=== PATIENT | male | born 1945 | race Caucasian/White ===

== ENCOUNTER 2021-04-17 03:27 | Outpatient (CLI) | payer SELFPAY ==
[2021-04-17 11:24] LABS: ESR 21 mm/hr (0-20)
[2021-04-17 12:04] LABS: C-Reactive Protein 0.07 mg/dL (0.0-0.3)
[2021-04-18 09:39] LABS: Lyme Ab w Rflx to Lyme Confirm Negative (Negative)
[2021-04-18 14:40] LABS: ANA Interpretation Negative (Negative)
[2021-04-19 08:40] LABS: Anaplasma phagocytophilum IgG <1:64 titer (<1:64); Ehrlichia Chaffeensis(HME) IgG <1:64 titer (<1:64)
== END 2021-04-17 03:28 | disposition home or self-care (01) ==
LOC: LBO 03:28
PROVIDERS: PCP Internal Medicine; Visit Provider Internal Medicine
DX: R41.3 Other amnesia (principal)
CPT/HCPCS: 36415; 85652; 86038; 86140; 86618; 86666

== ENCOUNTER 2022-01-03 02:31 | Outpatient (CLI) | payer SELFPAY ==
[2022-01-03 10:20] LABS: Anion Gap 9.9 mmol/L (3-11); BUN 19 mg/dL (7-18); CO2 27.1 mmol/L (21.0-32.0); CREATININE 1.1 mg/dL (0.70-1.30); Calcium 9.4 mg/dL (8.5-10.1); Calculated LDL 116 mg/dL (<100); Chloride 108 mmol/L (98-107); Cholesterol 213 mg/dL (<200); Glucose 108 mg/dL (74-106); HDL Cholesterol 67 mg/dL (40-60); Potassium 3.7 mmol/L (3.5-5.1); Sodium 145 mmol/L (136-145); Triglyceride 152 mg/dL (<150)
== END 2022-01-03 02:32 | disposition home or self-care (01) ==
LOC: LBO 02:31
PROVIDERS: PCP Internal Medicine
DX: I10 Essential (primary) hypertension (principal); E78.2 Mixed hyperlipidemia
CPT/HCPCS: 36415; 80048; 80061

== ENCOUNTER 2024-05-27 13:35 | Emergency (ER) | payer MEDICARE, SELFPAY ==
[2024-05-27 13:50] VITALS: BP 164/82; PULSE 95; RESP 18; TEMP 36.7; O2SAT 95
--- NOTE | 2024-05-27 14:00 | RT.EKG_ITS ---
APPROVED REPORT Exam: Resting ECG Reason for Exam: Confusion Patient Location: E HR:90 bpm ECG Measurements Heart Rate 90 AXIS WV 228 P 58 QRSd 168 QRS -48 QT 404 T 123 QTc 496 Conclusion Sinus rhythm...normal P axis, V-rate 60- 99 Ventricular trigeminy...trigeminy string>6 w/ V complexes Prolonged WV interval...WV >220, V-rate 50- 90 Right bundle branch block...QRSd>120, terminal axis(90,270) Inferior infarct, old...Q >35mS, II III aVF Sinus rhythm at a rate of 90. Left axis deviation no signs of LVH. First-degree AV block. Borderli ne QTc prolongation. Frequent PVCs in a pattern of ventricular bigeminy. No prior for comparison. No acute injury pattern. ST segment depressions V2 and V3.
--- NOTE | 2024-05-27 14:00 | DI.CT_ITS ---
Exam(s) CT HEAD WO EXAM: CT HEAD WO CLINICAL HISTORY: Confusion. TECHNIQUE: Imaging Protocol: Axial computed tomography images with coronal and sagittal reformatted images were created and reviewed COMPARISON: CT CT HEAD WO from 04/11/2021 FINDINGS: Ventricles and Extra axial spaces: Normal in size and morphology for the patient's age. Hemorrhage: None. Cerebral parenchyma: There are areas of decreased attenuation in the white matter consistent with chr onic microvascular ischemic disease. Midline shift: None. Brainstem/Cerebellum: Normal. Calvarium: Normal. Visualized Paranasal sinuses/Mastoids: Clear. Soft Tissues: There is a 0.7 x 1.0 cm well-circumscribed nodule in the superior medial left retro-orb ital soft tissues. It is superior to the medial rectus muscle. (Series 2, image 19). IMPRESSION: 1. No acute intracranial process. 2. Findings of cerebral atrophy and chronic microvascular ischemic disease. 3. 0.7 x 1.0 cm left retro-orbital soft tissue mass. Differential considerations include cavernous h emangioma, neoplasm/metastasis, sarcoid, AVM, et cetera. Outpatient MRI of the orbits should be cons idered for further evaluation. RADIATION DOSE DELIVERED: 871.19mGy.cm Total DLP DATA REPOSITORY: All CT scans at this facility are submitted to the National Radiology Data Registry (NRDR) Dose Index Registry (DIR) with the [employer] (ACR). RADIATION OPTIMIZATION: All CT scans at this facility use at least one of these dose optimization te chniques: automated exposure control; mA and/or kV adjustment per patient size (includes targeted exa ms where dose is matched to clinical indication); or iterative reconstruction.
--- NOTE | 2024-05-27 14:00 | DI.RAD_ITS ---
Exam(s) XR CHEST 1V IN DI DEPT EXAM: XR CHEST 1V IN DI DEPT CLINICAL HISTORY: Confusion TECHNIQUE: 2D digital imaging was performed of the chest. One image was obtained. An AP view was ob tained. COMPARISON: No exams were available for comparison FINDINGS: MEDIASTINUM: Normal. HEART: Normal. PULMONARY VASCULATURE: Normal. LUNGS: No focal consolidating infiltrates are present. PLEURAL SPACE: No pleural effusion or pneumothorax. BONE:Within normal limits for the patient's age. OTHER FINDINGS:There is a large hiatal hernia. IMPRESSION: No acute pulmonary findings. DATA REPOSITORY: RADIATION DOSE DELIVERED:
--- NOTE | 2024-05-27 14:05 | ED.GENADUL_ITS ---
Discharge Plan Disposition Patient Disposition: Home Discharge Details Clinical Impression: Intracranial mass, Myocardial injury Primary Care Provider: Finn Li ED Provider: Robin Baez Home Meds and New Rx's Prescriptions: Continued atorvastatin [Lipitor] 40 MG tablet 40 mg PO DAILY amlodipine 5 MG tablet 5 mg PO DAILY aspirin [Aspir-81] 81 MG tablet,delayed release (DR/EC) 81 mg PO DAILY lisinopril 40 MG tablet 40 mg PO DAILY allopurinol 100 MG tablet 100 mg PO DAILY hydrochlorothiazide 25 MG tablet 25 mg PO DAILY metoprolol succinate 50 MG tablet extended release 24 hr 50 mg PO DAILY Discharge Instructions Additional Instructions: You are seen in the emergency department for your cognitive decline. Neurology recommends that you have an MRI of your orbits as you are found to have a new mass. Please follow-up with your primary care next week as you also need an ultrasound of your heart as you had signs of myocardial injury on your blood testing. As we discussed if you develop chest pain shortness of breath or if you pass out please return to the emergency department. HPI General Date/Time Provider Initiated Documentation: 05/27/24 14:01 . HPI Narrative: MDM This is an overall well-appearing normothermic and not tachycardic 79-year-old male with cognitive decline concerning for the possibility of subacute CVA for which patient will undergo CT scan and neurological consultation. No nuchal rigidity to suggest meningitis. No fevers to suggest encephalitis. No pain out of proportion to suggest necrotizing soft tissue infection. No history of vomiting nor head strike so my suspicion is low for intracranial hemorrhage. No headache to suggest subarachnoid hemorrhage. No tonic-clonic activity so my suspicion is low for seizure so I do not feel that the patient requires an EEG. Patient's rhythm is regular that we will obtain a twelve-lead ECG to ensure that he has not had atrial fibrillation. Soft nontender abdomen so my suspicion is low for appendicitis. No chest pain to suggest aortic dissection. No cough to suggest pneumonia. No rash to suggest zoster. No ethanol use to suggest Warnicke's encephalopathy. 3:[address] head with no acute intracranial process but chronic changes and left retro- orbital soft tissue mass concerning for the possibility of AVM neoplasm cavernous hemangioma. Unfortunate I was not able to order a MRI orbit as recommended by radiology. Will obtain an MRI brain to assess for CVA and CT angiogram head and neck. Normal reassuring TSH. CBC with mild normocytic anemia. No leukocytosis. No thrombocytopenia. Markedly elevated troponin at 166 ng/L. Will order repeat troponin and provide 324 mg aspirin given no head bleed. No prior for comparison. No chest pain to suggest myocardial infarct no shortness of breath. Will repeat troponin. Normal renal function. Mild hyperglycemia but no anion gap. Normal bicarbonate??not consistent with DKA. Normal magnesium. Ramila Hopkins from [facility] has evaluated the patient and set patient up with new home services. She also arranged for outpatient palliative care consult. 5:13 PM No large vessel occlusion or stenosis on CT angiogram of head. Left retrobulbar mass concerning for the possibility of cavernous hemangioma. MRI brain showing no evidence of acute infarct. Patient does have cerebral parenchymal abnormalities concerning for the possibility of cerebral amyloid, hypertensive microhemorrhages, ischemic microhemorrhages, multiple cavernous malformations. 6:10 PM Repeat troponin slightly improved compared to prior. Patient still without ches t pain. Neurology recommended checking serum B12 folate Lyme titer. Patient is due for formal neuropsych evaluation regarding dementia. Patient can be discharged per neurology. 7:30 PM I spoke to Dr. Quevedo from cards at [facility]. He advised against treatment for ACS. From a cardiac presepctive patient will require outpatient echo. 7:48 PM Reassuring normal folate. Vitamin B12 within normal limits. Urinalysis nitrite leukoesterase negative not consistent with UTI. I spoke with patient's daughter Brooke [phone]. I updated her on the patient's plan of care. I spoke with health community marketing coordinator [place] and asked the patient to be seen next week by his primary care provider. Will repeat blood pressure. I have asked health community marketing coordinator [place] to have the patient have an outpatient MRI orbit and echocardiogram. I advised patient and his partner that patient should be return to the emergency department if he developed any chest pain shortness of breath nausea or vomiting. Patient understood return indications and was discharged with a trial of expectant outpatient management. Patient reported that he would be adherent with taking his medications. Repeat blood pressure with persistent hypertension. Patient did take his home oral antihypertensive in the ED. Chronic conditions affecting the care of the patient: Hypertension hyperlipidemia History obtained from an outside historian: Patient's partner External record review: No [facility] [place] Diagnostic interpretations performed by me: Per my independent interpretation chest x-ray shows: Per my independent interpretation EKG shows: Sinus rhythm at a rate of 90. Left axis deviation no signs of LVH. First- degree AV block. Borderline QTc prolongation. Frequent PVCs in a pattern of ventricular trigeminy. No prior for comparison. No acute injury pattern. ST segment depressions V2 and V3. ]Medications: Aspirin Social determinants of health affecting disposition: N/A Management discussed with: Neurology cardiology Treatment/interventions considered: N/A Response to therapies provided: N/A HPI This is 79-year-old male with history of hypertension hyperlipidemia arrived to the emergency department via private vehicle with his partner of 10 years in the setting of cognitive decline. Patient reportedly has not taken his medications in the past 3 weeks. His memory has reportedly deteriorated significantly. He reportedly has had word finding difficulties. His partner notes that he recently made a pot of coffee but did not put the pot underneath the medical or surgical instrument maker causing the coffee to spill onto the ground. He reportedly has lost 3 pairs of glasses recently. He was reportedly hiding his medications around the house. No routine tobacco nor illicits. Patient occasionally drinks ethanol. Patient denies chest pain shortness of breath fevers nausea vomiting abdominal pain dysuria frequency. No recent falls. Exam General: Well-appearing in no acute distress speaking in complete sentences. Head: Normocephalic, atraumatic. Eye:[Pupils equal, round reactive to light.] Extraocular eye movements intact. No conjunctival injection. No scleral icterus. Ear, nose, mouth, throat: Grossly normal inspection. Normal voice, handling secretions normally. Neck: Trachea midline. No nuchal rigidity Cardiovascular: Well-perfused distal extremities. Regular rate and rhythm Respiratory: Nonlabored respiration. Clear lungs bilaterally Gastrointestinal: Nondistended abdomen. Obese, soft Musculoskeletal: No edema. Moving all 4 extremities spontaneously. Skin: Normal for age and race, grossly normal temperature and turgor. No acute rash. Neurologic: Alert to person but not place nor time. GCS 14: E4, V4, M6. Cranial nerves II through XII intact grossly. No dysmetria. No dysdiadochokinesia. Psychiatric: Mood and manner are appropriate. Grooming and personal hygiene are appropriate. Related Data Home Medications Medication Instructions Recorded Confirmed allopurinol 100 mg tablet 100 mg PO DAILY 07/11/17 05/27/24 amlodipine 5 mg tablet 5 mg PO DAILY 07/11/17 05/27/24 aspirin 81 mg tablet,delayed 81 mg PO DAILY 07/11/17 05/27/24 release (Aspir-) atorvastatin 40 mg tablet (Lipitor) 40 mg PO DAILY 07/11/17 05/27/24 hydrochlorothiazide 25 mg tablet 25 mg PO DAILY 07/11/17 05/27/24 lisinopril 40 mg tablet 40 mg PO DAILY 07/11/17 05/27/24 metoprolol succinate 50 mg 50 mg PO DAILY 07/11/17 05/27/24 tablet,extended release 24 hr Allergies Allergy/AdvReac Type Severity Reaction Status Date / Time No Known Allergies Allergy Unverified 05/27/24 13:54 General Stated Complaint: [facility]Medical ELVIRA: 3 Course Vital Signs Vital signs: Vital Signs Temperature 36.7 C 05/27/24 13:50 Pulse 95 H 05/27/24 13:50 Respiratory Rate 18 05/27/24 13:50 Blood Pressure 164/82 H 05/27/24 13:50 Pulse Oximetry 95 05/27/24 13:50 Temperature 36.7 C 05/27/24 13:50 Temperature Source Skin 05/27/24 13:50 Pulse 95 H 05/27/24 13:50 Respiratory Rate 18 05/27/24 13:50 Respiratory Effort Normal 05/27/24 13:54 Blood Pressure 164/82 H 05/27/24 13:50 Blood Pressure Position Sitting 05/27/24 13:50 Pulse Oximetry 95 05/27/24 13:50 Oxygen Delivery Method Room Air 05/27/24 13:50 Oxygen Flow Rate 0 05/27/24 13:50 Medical Decision Making Quality:SDOH Health Related Social Needs: No Data to Display PFSH All Active Problems (Updated 05/27/24 @ 17:22 by Robin Baez MD) Myocardial injury (Acute) Intracranial mass (Acute) Social History Smoking/Tobacco Use Status: Never Smoking risk assessment performed?: Yes Alcohol Intake: current Alcohol Intake frequency: holidays/special occasions only Substance use type: does not use Do you feel safe in your relationship?: Yes
[2024-05-27 15:21] LABS: Abs Immature Grans 0.01 10^3/uL (0.0-0.06); Absolute Basophil Count 0.04 10^3/uL (0.0-0.2); Absolute Lymphocyte Count 1.39 10^3/uL (1.2-3.4); Absolute Monocyte Count 0.52 10^3/uL (0.1-0.8); Absolute Neutrophil Count 2.27 10^3/uL (1.2-6.7); Basophils % 0.9 %; Eosinophils % 4.5 %; HCT 42.3 % (40.0-50.0); HGB 12.6 g/dL (13.5-17.5); Immature Grans % 0.2 %; Lymphocytes % 31.4 %; MCHC 29.8 % (32.0-36.0); MCV 81 fL (80-95); MPV 9.8 fL (8.0-11.0); Monocytes % 11.7 %; Neutrophils % 51.3 %; Platelet Count 216 10^3/uL (130-400); RBC 5.24 10^6/uL (4.36-5.78); RDW 15.3 % (11.8-14.1); RDW-SD 44.5 fL; WBC 4.43 10^3/uL (4.4-10.8)
[2024-05-27 15:28] LABS: Anion Gap 7.8 mmol/L (3-11); BUN 20 mg/dL (7-18); CO2 26.2 mmol/L (21.0-32.0); CREATININE 1.3 mg/dL (0.70-1.30); Calcium 8.7 mg/dL (8.5-10.1); Chloride 110 mmol/L (98-107); Estimated GFR 55.88 (mL/min/1.73m2); Glucose 120 mg/dL (74-106); Potassium 4.1 mmol/L (3.5-5.1); Sodium 144 mmol/L (136-145)
--- NOTE | 2024-05-27 15:30 | DI.MRI_ITS ---
Exam(s) MR BRAIN WO EXAM: MR BRAIN WO CLINICAL HISTORY: Rectal bulbar mass TECHNIQUE: Multiplanar multisequence MRI of the brain was performed. COMPARISON: CT CT HEAD WO from 05/27/2024 FINDINGS: The examination is limited due to patient motion artifact. VENTRICLES AND EXTRA AXIAL SPACES: Normal in size and morphology for the patient's age. MIDLINE SHIFT: None. CEREBRAL PARENCHYMA: No focus of restricted diffusion to suggest acute infarct. No space-occupying le fausto identified. There are multiple foci of hyperintense signal seen on the FLAIR and T2 weighted germaine ges in the white matter consistent with chronic microvascular ischemic disease. HEMORRHAGE: There are multiple ???black dots??? on the gradient images in the parenchyma. BRAINSTEM/CEREBELLUM: Normal. CALVARIUM: Normal. VISUALIZED PARANASAL SINUSES/MASTOIDS:Clear. [place]: Normal flow void. PITUITARY GLAND: Unremarkable. OTHER FINDINGS: There is a very well-circumscribed round 1 x 0.8 cm lesion in the left is isointense on the T1 weighted images and slightly hyperintense on the T2 weighted images. Retro orbital soft ti ssues. It is separate from the optic nerve and the extraocular muscles. It in the medial aspect of the retro-orbital soft tissues. IMPRESSION: 1. No evidence of an acute infarct. 2. Findings of cerebral atrophy and chronic microvascular ischemic disease. 3. Multiple ???black dot??? in the cerebral parenchyma on the gradient images. Differential consider ations include cerebral amyloid, hypertensive microhemorrhages, ischemic microhemorrhages, multiple c avernous malformations. Hemorrhagic metastases and ANTHONY are considered less likely. 4. 1 x 0.8 cm well-circumscribed lesion the retro-orbital soft tissues on the left. Primary diagnost ic concern is for a cavernous hemangioma. Other etiologies including neoplasm/metastasis, sarcoid or AVM etc should also be considered. Postcontrast images were not obtained. DATA REPOSITORY:
[2024-05-27 15:45] LABS: Magnesium 2.1 mg/dL (1.8-2.4); TSH (W/Ref FT4) 2.21 uIU/mL (0.36-3.74)
[2024-05-27 15:47] LABS: Troponin I 166 ng/L (< or =60)
[2024-05-27] MEDS: Omnipaque 350 MG/ML 100 ML BTL 85 ML IJ (16:17)
[2024-05-27] MEDS: Normal Saline - Diluent 50 ML VIAL IJ (16:18)
--- NOTE | 2024-05-27 16:28 | DI.CT_ITS ---
Exam(s) CT BRAIN NECK CTA EXAM: CT BRAIN NECK CTA CLINICAL HISTORY: Left retrobulbar mass? AVM. TECHNIQUE: Imaging Protocol: Axial CT angiography was performed with multi-slice acquisition and mu lti-planar and/or 3D reconstructions. CONTRAST MATERIAL: Intravenous: Omnipaque 350 contrast volume:85 mL COMPARISON: CT CT HEAD WO from 05/27/2024 MR MR BRAIN WO from 05/27/2024 FINDINGS: CT Head w: Ventricles and Extra axial spaces: Normal in size and morphology for the patient's age. Hemorrhage: None. Cerebral parenchyma: There are areas of decreased attenuation in the white matter consistent with chr onic microvascular ischemic disease. No mass effect. Midline shift: None. Brainstem/Cerebellum: Normal. Calvarium: Normal. Visualized Paranasal sinuses/Mastoids: Clear. Soft Tissues: Unremarkable. Enhancement: There is enhancement of the left retro-orbital mass. Again, it is separate from the opt ic nerve and musculature. CTA Neck W: Common Carotid: Right: No dissection, occlusion or significant stenosis. Atherosclerotic calcification is present. Left: No dissection, occlusion or significant stenosis. Atherosclerotic calcification is present. External Carotid: Right: No occlusion or significant stenosis. Left: No occlusion or significant stenosis. Internal Carotid: Right: No dissection, occlusion or significant stenosis. Atherosclerotic calcification is present. Left: No dissection, occlusion or significant stenosis. Atherosclerotic calcification is present. Vertebral Artery: Right: No dissection, occlusion or significant stenosis. Left: No dissection, occlusion or significant stenosis. Lung Apices: No acute pulmonary process is seen in the lung apices. Bones: Within normal limits for the patient's age. Soft Tissues: Normal. Thyroid gland: Unremarkable. CTA Brain W: Internal Carotid Arteries: Atherosclerotic calcification is seen in the internal carotid arteries danis aterally without significant stenosis. No evidence of occlusion or aneurysm. Anterior Cerebral Arteries: Right: No aneurysm, occlusion or significant stenosis. Left: No aneurysm, occlusion or significant stenosis. Middle Cerebral Arteries: Right: No aneurysm, occlusion or significant stenosis. Left: No aneurysm, occlusion or significant stenosis. Posterior Cerebral Arteries: Right: No aneurysm, occlusion or significant stenosis. Left: No aneurysm, occlusion or significant stenosis. Vertebral Arteries: Right: No aneurysm, occlusion or significant stenosis. Left: No aneurysm, occlusion or significant stenosis. Basilar Artery: No aneurysm, occlusion or significant stenosis. IMPRESSION: 1. No large vessel occlusion or significant stenosis on the CT angiography of the head. 2. No acute intracranial process. Findings of cerebral atrophy and chronic microvascular ischemic di sease. 3. Left retrobulbar mass as described above. Primary diagnostic concern is for cavernous hemangioma. Differential considerations are unchanged. 4. No occlusion or significant stenosis on the CT angiography of the neck. RADIATION DOSE DELIVERED: 1,329.8mGy.cm Total DLP DATA REPOSITORY: All CT scans at this facility are submitted to the National Radiology Data Registry (NRDR) Dose Index Registry (DIR) with the [employer] (ACR). RADIATION OPTIMIZATION: All CT scans at this facility use at least one of these dose optimization te chniques: automated exposure control; mA and/or kV adjustment per patient size (includes targeted exa ms where dose is matched to clinical indication); or iterative reconstruction.
[2024-05-27 17:48] LABS: Troponin I 158 ng/L (< or =60)
[2024-05-27] MEDS: Aspirin 81 MG CHEW 324 MG CH (18:35)
[2024-05-27 18:49] LABS: Bilirubin Negative (Negative); Blood Negative (Negative); Clarity Clear (Clear); Glucose Negative (Negative); Ketones Negative (Negative); Leukocyte Esterase Negative (Negative); Nitrite Negative (Negative); Urobilinogen 0.2 mg/dL (Up to 0.2)
[2024-05-27 19:22] LABS: Troponin I 140 ng/L (< or =60)
[2024-05-27 19:41] LABS: Folate 9.6 ng/mL (8.6-20.0); Vitamin B12 349 pg/mL (193-986)
[2024-05-27 20:02] VITALS: BP 167/119; PULSE 80; RESP 14; O2SAT 98
--- NOTE | 2024-05-27 22:36 | NUR.NOTE ---
Pt placed on care management referral list to see PCP for an Echo/ MRI for a brain mass ,mild cardio injury.
[2024-05-30 13:44] LABS: Lyme Ab w Rflx to Lyme Confirm Negative (Negative)
[2024-05-30 15:15] LABS: Syphilis Serology (RPR) Negative (Negative)
[2024-05-31 21:18] LABS: Anaplasma phagocytophilum Negative (Negative); B. miyamotoi PCR Negative (Negative); Babesia divergens/MO-1 Negative (Negative); Babesia duncani Negative (Negative); Babesia microti Negative (Negative); Ehrlichia chaffeensis Negative (Negative); Ehrlichia ewingii/canis Negative (Negative); Ehrlichia muris eauclairensis Negative (Negative)
== END 2024-05-27 20:12 | disposition home or self-care (01) ==
PROVIDERS: Emergency Provider Emergency Medicine; PCP Internal Medicine
DX: I5A Non-ischemic myocardial injury (non-traumatic); R90.0 Intracranial space-occupying lesion found on diagnostic imaging of central nervous system; I10 Essential (primary) hypertension; Z86.73 Personal history of transient ischemic attack (TIA), and cerebral infarction without residual deficits
CPT/HCPCS: 70496; 70498; 80048; 82533; 87798; 93005; 99285; 70450; 70551; 71045; 81003; 82607; 82746; 83735; 84443; 84484; 85025; 86592; 86618; 93010; 99283; J3490

== ENCOUNTER 2024-09-14 10:35 | Emergency (ER) | payer MEDICARE, SELFPAY ==
[2024-09-14] VITALS (30 sets, daily range): BP systolic 134–204; BP diastolic 64–189; PULSE 52–205; RESP 14–39; TEMP 36.5; O2SAT 93–98
--- NOTE | 2024-09-14 10:30 | RT.EKG_ITS ---
APPROVED REPORT Exam: Resting ECG Reason for Exam: altered mental status Patient Location: E HR:102 bpm ECG Measurements Heart Rate 102 AXIS [place] 229 P 59 QRSd 174 QRS -55 QT 400 T -15 QTc 521 Conclusion Sinus tachycardia...rate> 99 Ventricular bigeminy...bigeminy string>4 w/ V complexes Prolonged [place] interval...KY >215, V-rate 91-120 Right bundle branch block...QRSd>120, terminal axis(90,270) Probable inferior infarct, age indeterminate...Q>35mS, T neg, II III aVF Probable lateral infarct, old...Q>35mS, abnormal ST-T, V5-6 I aVL
--- NOTE | 2024-09-14 13:11 | W.ED.GENAD ---
Discharge Plan Disposition Patient Disposition: Home Discharge Details Clinical Impression: Dementia, Altered mental status, Bilateral swelling of feet Primary Care Provider: Sheree Menjivar ED Provider: Steffen Palmer Home Meds and New Rx's Prescriptions: Continued gabapentin 300 mg/6 mL (6 mL) solution 300 mg PO TID Qty: 240 3RF lisinopril 40 mg tablet 40 mg PO DAILY Qty: 90 3RF omeprazole 20 mg capsule,delayed release(DR/EC) 20 mg PO DAILY Qty: 90 1RF Changed quetiapine 25 mg tablet 50 mg PO QHS Qty: 30 1RF No Action morphine 15 mg tablet 15 mg PO Q8H MDD 3 tabs PRN (Reason: pain) Qty: 7 0RF acetaminophen 650 mg suppository 650 mg DE Q6H PRN (Reason: fever, mild pain) Qty: 6 0RF Rx Instructions: Hospice Patient hyoscyamine sulfate 0.125 mg tablet,disintegrating 0.125 - 0.25 mg PO Q4H PRN (Reason: secretions) Qty: 24 0RF Rx Instructions: Hospice Patient haloperidol lactate 2 mg/mL concentrate 1 mg PO Q6H PRN (Reason: agitation) Qty: 15 0RF Rx Instructions: Hospice Patient lorazepam 1 mg tablet 1 mg PO Q4H PRN (Reason: anxiety, SUTTON or nausea) Qty: 6 5RF Rx Instructions: Hospice Patient morphine concentrate 100 mg/5 mL (20 mg/mL) solution 5 - 20 mg PO Q1-4H MDD 5 mL PRN (Reason: moderate to severe pain or shortness of breath) Qty: 30 0RF Rx Instructions: Hospice Patient prochlorperazine maleate 10 mg tablet 10 mg PO Q6H PRN (Reason: nausea and vomiting) Qty: 6 0RF Rx Instructions: Hospice Patient bisacodyl [Dulcolax (bisacodyl)] 10 mg suppository 10 mg DE daily PRN (Reason: constipation) Qty: 2 0RF Rx Instructions: Hospice Patient Insert 1 supp DE Daily PRN constipation (no BM in 3 days) fentanyl 75 mcg/hr patch 72 hour 1 patch transdermal Q72H MDD 1 patch Qty: 5 0RF Rx Instructions: hospice scopolamine base 1 mg over 3 days patch 3 day 1 patch transdermal Q3D Qty: 4 0RF Rx Instructions: hospice lorazepam 2 mg/mL concentrate 1 mg PO Q4H PRN PRN (Reason: anxiety) Qty: 30 0RF Rx Instructions: hospice Discharge Instructions Instructions: Morphine (Systemic), Caring for someone with Alzheimer disease or dementia Additional Instructions: Please follow-up with home health care services and your primary care physician. Discharge Data Discharge Date/Time-TO BE ENTERED AT DEPARTURE: 09/14/24 13:45 HPI General Date/Time Provider Initiated Documentation: 09/14/24 10:40. Limitations to Documentation: altered mental status. Information obtained by: family. HPI Narrative: 79-year-old male with history of Alzheimer's dementia, here with brand marketing manager who is concerned with decreased appetite, bilateral foot swelling, altered mental status with not as conversant as usual. Patient has had pneumonia over the past couple weeks being treated with antibiotics. He continues to have cough. Patient does have a COLST form that request DNR DNI and no invasive treatments. Related Data Home Medications ?Medication ?Instructions ?Recorded ?Confirmed gabapentin 300 mg/6 mL (6 mL) oral 300 mg (6 mL) PO TID #240 mL 07/20/24 09/14/24 solution lisinopril 40 mg tablet 40 mg PO DAILY #90 tabs 07/20/24 09/14/24 omeprazole 20 mg capsule,delayed 20 mg PO DAILY #90 caps 08/31/24 09/14/24 release quetiapine 25 mg tablet 50 mg (2 x 25 mg) PO QHS #30 tabs 09/14/24 09/14/24 acetaminophen 650 mg rectal 650 mg DE Q6H PRN fever, mild pain 09/15/24 suppository #6 supp bisacodyl 10 mg rectal suppository 10 mg DE daily PRN constipation #2 09/15/24 (Dulcolax (bisacodyl)) supp haloperidol lactate 2 mg/mL oral 1 mg (0.5 mL) PO Q6H PRN agitation 09/15/24 concentrate #15 mL hyoscyamine sulfate 0.125 mg 0.125 - 0.25 mg (1 - 2 x 0.125 mg) 09/15/24 disintegrating tablet PO Q4H PRN secretions #24 tabs lorazepam 1 mg tablet 1 mg PO Q4H PRN anxiety, SUTTON or 09/15/24 nausea #6 tabs morphine 15 mg immediate release 15 mg PO Q8H PRN pain #7 tabs 09/15/24 tablet morphine concentrate 100 mg/5 mL 5 - 20 mg (0.25 - 1 mL) PO Q1-4H 09/15/24 (20 mg/mL) oral solution PRN moderate to severe pain or shortness of breath #30 mL prochlorperazine maleate 10 mg 10 mg PO Q6H PRN nausea and 09/15/24 tablet vomiting #6 tabs fentanyl 75 mcg/hr transdermal 1 patch transdermal Q72H #5 ea 09/17/24 patch lorazepam 2 mg/mL oral concentrate 1 mg (0.5 mL) PO Q4H PRN PRN 09/17/24 anxiety #30 mL scopolamine base 1 mg over 3 days 1 patch transdermal Q3D #4 ea 09/17/24 transdermal patch Previous Rx's ?Medication ?Instructions ?Recorded gabapentin 300 mg/6 mL (6 mL) oral 300 mg (6 mL) PO TID #240 mL 07/20/24 solution lisinopril 40 mg tablet 40 mg PO DAILY #90 tabs 07/20/24 omeprazole 20 mg capsule,delayed 20 mg PO DAILY #90 caps 08/31/24 release quetiapine 25 mg tablet 50 mg (2 x 25 mg) PO QHS #30 tabs 09/14/24 acetaminophen 650 mg rectal 650 mg DE Q6H PRN fever, mild pain 09/15/24 suppository #6 supp bisacodyl 10 mg rectal suppository 10 mg DE daily PRN constipation #2 09/15/24 (Dulcolax (bisacodyl)) supp haloperidol lactate 2 mg/mL oral 1 mg (0.5 mL) PO Q6H PRN agitation 09/15/24 concentrate #15 mL hyoscyamine sulfate 0.125 mg 0.125 - 0.25 mg (1 - 2 x 0.125 mg) 09/15/24 disintegrating tablet PO Q4H PRN secretions #24 tabs lorazepam 1 mg tablet 1 mg PO Q4H PRN anxiety, SUTTON or 09/15/24 nausea #6 tabs morphine 15 mg immediate release 15 mg PO Q8H PRN pain #7 tabs 09/15/24 tablet morphine concentrate 100 mg/5 mL 5 - 20 mg (0.25 - 1 mL) PO Q1-4H 09/15/24 (20 mg/mL) oral solution PRN moderate to severe pain or shortness of breath #30 mL prochlorperazine maleate 10 mg 10 mg PO Q6H PRN nausea and 09/15/24 tablet vomiting #6 tabs fentanyl 75 mcg/hr transdermal 1 patch transdermal Q72H #5 ea 09/17/24 patch lorazepam 2 mg/mL oral concentrate 1 mg (0.5 mL) PO Q4H PRN PRN 09/17/24 anxiety #30 mL scopolamine base 1 mg over 3 days 1 patch transdermal Q3D #4 ea 09/17/24 transdermal patch Allergies Allergy/AdvReac Type Severity Reaction Status Date / Time No Known Allergies Allergy Unverified 09/14/24 11:26 General Stated Complaint: AMS/LOC ELVIRA: 3 Review of Systems Unobtainable due to mental status Exam Const General: no acute distress Orientation: alert, awake and confused HENMT Head: atraumatic Eyes Sclera: normal sclerae Resp Effort & Inspection: normal respiratory effort and cough Auscultation: no rales and no wheezes Cardio Rate: tachycardic Rhythm: regular rhythm GI Palpation: no guarding, not rigid and tender (Lower abdomen) Skin General skin exam: no rashes or lesions noted Neuro General: patient awake Extrem General: edema Laterality: bilateral (1+ up to distal lower legs) Course Vital Signs Vital signs: Vital Signs Temperature 36.5 C 09/14/24 10:35 Pulse 100 H 09/14/24 10:35 Respiratory Rate 15 09/14/24 10:35 Blood Pressure 134/64 09/14/24 10:35 Pulse Oximetry 95 09/14/24 10:35 Temperature 36.5 C 09/14/24 10:42 Pulse 100 H 09/14/24 10:42 Respiratory Rate 22 09/14/24 11:24 Respiratory Effort Normal, Non-Labored 09/14/24 11:24 Respiratory Depth Normal 09/14/24 11:24 Respiratory Pattern Normal 09/14/24 11:24 Blood Pressure 134/64 09/14/24 10:42 Blood Pressure Position Sitting 09/14/24 10:42 Pulse Oximetry 95 09/14/24 10:42 Oxygen Delivery Method Room Air 09/14/24 10:42 Oxygen Flow Rate 0 09/14/24 10:35 Medical Decision Making 79-year-old male with advanced Alzheimer's dementia, here with brand marketing manager with concern for decreased appetite, bilateral foot swelling, persistent cough, being treated for pneumonia, and altered mental status from baseline. Patient is tachycardic, saturating in the mid 90s on room air with no respiratory distress. He does have intermittent cough and rhonchi on auscultation. Patient does have bilateral foot swelling. He has some lower abdominal tenderness. Patient does have COLST form advising DNR, DNI, no invasive interventions. I called and spoke with the patient's next of kin and healthcare proxy, his daughter, discussed ED presentation. She understands that he may have acute life-threatening disease. She request no diagnostics or change in current treatment other than to ensure his pain is well-controlled. She requested it be discharged back to the care of his brand marketing manager. Plan to transition to hospice care. Will give short course of analgesic to control his discomfort. Plan to initiate hospice services. Quality:SDOH Health Related Social Needs: No Data to Display PFSH All Active Problems (Updated 09/16/24 @ 13:31 by Janneth Ahumada MD) Hospice care patient (Acute) Mixed Alzheimer's and vascular dementia (Acute) Bilateral swelling of feet (Acute) Altered mental status (Acute) CKD (chronic kidney disease), stage III (Acute) Memory loss (Acute) Hiatal hernia with gastroesophageal reflux disease without esophagitis (Acute) Altered mental status (Acute) with expressive aphasia Cerebral amyloid angiopathy (Acute) Dementia (Chronic) GERD (gastroesophageal reflux disease) (Chronic) Dyslipidemia (Acute) Essential hypertension (Acute) Moderate aortic stenosis (Acute ~12/2021) LVEF 55-60%, moverate LVH, AV with moderate aortic stenosis. 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 Maternal Grandfather No problems noted. Paternal Grandmother No problems noted. Paternal Grandfather No problems noted. Social History (Updated 07/21/24 @ 17:29 by Kat Salguero) Smoking/Tobacco Use Status: Former Tobacco Use tobacco type: pipe and cigars Quit status: quit date established Smoking risk assessment performed?: Yes Alcohol Intake: current Alcohol Intake frequency: a few times a month Alcohol type: wine and hard liquor Drug use: Never Substance use type: does not use Adopted: No Caregiver/Support person: Yes Household members: significant other Housing: house Number of Children: 1 number of grandchildren: 1 Communication Needs: Language Barriers Education Level: college Do you need help understanding health information?: Often current occupation: Retired [employer] Do you think of yourself as: straight/heterosexual Current gender identity: male What is your relationship status?: living with partner How often do you talk on the phone with friends or family?: once per week How often do you get together with friends or relatives?: once per week How often do you attend jain or temple services?: 1-3 times per year Do you belong to any clubs or organized social groups?: no Panel score (0-1 are the most socially isolated patients): 1 What type of physical activity do you participate in: none Frequency: does not exercise Henrietta/Christian: Non presybeterian Seatbelt use: always Helmet use: No Drive intox or ride w/intox maintenance truck driver: No (License Surrendered) Firearms in home: No Do you feel safe at home: Yes Do you feel safe in your relationship?: Yes Victim of physical abuse: No Victim of emotional abuse: No Victim of sexual abuse: No Would you like helpful sources: No
[2024-09-14] MEDS: HYDROmorphone 2 MG/ML SYR 1 MG IM (13:43)
[2024-09-14] MEDS: MORPHine IR 15 MG TAB, 4 TABS/BTL PO (13:44)
== END 2024-09-14 13:45 | disposition home or self-care (01) ==
PROVIDERS: Emergency Provider Student in an Organized Health Care Education/Training Program; PCP Family Medicine
DX: R41.82 Altered mental status, unspecified (principal); I25.10 Atherosclerotic heart disease of native coronary artery without angina pectoris; I12.9 Hypertensive chronic kidney disease with stage 1 through stage 4 chronic kidney disease, or unspecified chronic kidney disease; N18.30 Chronic kidney disease, stage 3 unspecified; E78.5 Hyperlipidemia, unspecified; Z87.891 Personal history of nicotine dependence; Z79.899 Other long term (current) drug therapy
CPT/HCPCS: 93005; 96372; 99284; 93010; J1171